=== PATIENT | female | born 1955 | race Caucasian/White ===

== ENCOUNTER → 2022-04-17 | Outpatient (REF) | payer MEDICARE | LOC: M LAB REF 12:13 | PROVIDERS: ATTEND Student in an Organized Health Care Education/Training Program | DX: R30.0 Dysuria (principal) ==

== ENCOUNTER 2022-05-02 23:57 | Emergency (ER) | payer MEDICARE ==
[~2022-05-02] VITALS: Ht 160 cm; Wt 72.7 kg
[2022-05-03 01:05] LABS: BASO % 0.3 % (0.0-1.0); EOS # 0.2 10^3/uL (0.0-0.5); EOS % 1.4 % (0.0-3.0); HEMATOCRIT 39.2 % (36.0-47.0); HEMOGLOBIN 12.6 g/dl (12.0-15.5); INR 0.91; LYMPH # 1.8 10^3/uL (1.5-5.0); MEAN CORPUSCULAR HEMOGLOBIN 28.8 pg (27.0-33.0); MEAN CORPUSCULAR HGB CONC 32.1 g/dl (32.0-36.5); MEAN CORPUSCULAR VOLUME 89.7 fl (80.0-96.0); MONO # 0.8 10^3/uL (0.0-0.8); NEUTROPHILS # 8.9 10^3/uL (1.5-8.5); NEUTROPHILS % 75.5 % (36.0-66.0); PLATELET COUNT, AUTOMATED 274 10^3/uL (150-450); PROTHROMBIN TIME 12.4 SECONDS (12.5-14.5); RED BLOOD COUNT 4.37 10^6/uL (4.00-5.40); WHITE BLOOD COUNT 11.9 10^3/uL (4.0-10.0)
[2022-05-03 01:15] LABS: LIPASE 40 U/L (12-53)
[2022-05-03 01:18] LABS: ALBUMIN 4.3 G/DL (3.2-5.2); ALKALINE PHOSPHATASE 110 U/L (46-116); ALT/SGPT 26 U/L (7.0-40); AST/SGOT 28 U/L (<34); BILIRUBIN,DIRECT < 0.1 MG/DL (<0.4); BILIRUBIN,TOTAL 0.3 MG/DL (0.3-1.2); BLOOD UREA NITROGEN 17 MG/DL (9-23); CALCIUM LEVEL 9.2 MG/DL (8.3-10.6); CARBON DIOXIDE LEVEL 24 MMOL/L (20-31); CHLORIDE LEVEL 104 MMOL/L (98-107); CK-MB VALUE MASS < 1.0 NG/ML (<3.6); CPK CREATINE PHOSPHOKINASE 97 U/L (34-145); CREATININE FOR GFR 0.61 MG/DL (0.55-1.30); GLOMERULAR FILTRATION RATE > 60.0 (>45); GLUCOSE, FASTING 148 MG/DL (74-106); MB/CK RELATIVE INDEX 1.03 (< OR =4); SODIUM LEVEL 138 MMOL/L (136-145)
[2022-05-03 01:33] LABS: THYROID STIMULATING HORMONE 9.408 uIU/ML (0.55-4.78); TOTAL PROTEIN 8.1 G/DL (5.7-8.2)
[2022-05-03] MEDS ORDERED: KETOROLAC 30 MG/ML 1ML VIAL IV ONE (01:40)
[2022-05-03] MEDS ORDERED: ISOVUE-370 76% 100ML VIAL As Ordered ONE (01:40)
[2022-05-03 02:14] LABS: CK-MB VALUE MASS < 1.0 NG/ML (<3.6)
[2022-05-03 02:16] LABS: CPK CREATINE PHOSPHOKINASE 96 U/L (34-145); MB/CK RELATIVE INDEX 1.04 (< OR =4)
[2022-05-03] MEDS ORDERED: LevoFLOXacin IV 750 MG in IV 1 EA IV ONE (03:05)
[2022-05-03] MEDS ORDERED: LEVO750T14 PO (03:12)
[2022-05-03 05:12] VITALS: BP 137/62
== END 2022-05-03 05:17 | disposition home or self-care (01) ==
LOC: M ED 23:57 → EDBD 23:57 → M ED 05-03 05:17
DX: J12.9 Viral pneumonia, unspecified (principal); R07.9 Chest pain, unspecified; Z88.6 Allergy status to analgesic agent
CPT/HCPCS: 71045; 71275; 80048; 80076; 82550; 82553; 83690; 83880; 84443; 84484; 85025; 85610; 93005; 93041; 94760; 96365; 96366; 96375; 99285; J1956; Q9967